=== PATIENT | female | born 1950 | race African-American/Black ===

== ENCOUNTER 2018-03-12 14:49 | Outpatient (CLI) | payer MEDICARE | END 2018-03-12 14:50 | disposition home or self-care (01) | LOC: BICMAMMO 14:49 | PROVIDERS: ATTEND Internal Medicine | DX: Z12.31 Encounter for screening mammogram for malignant neoplasm of breast (principal); Z80.3 Family history of malignant neoplasm of breast | CPT/HCPCS: 77063; 77067 ==

== ENCOUNTER 2018-05-14 15:06 | Outpatient (CLI) | payer MEDICARE ==
--- NOTE | 2018-05-14 16:45 | RAD ---
PA AND LATERAL CHEST: HISTORY: Cough. FINDINGS: The heart size is normal. The aorta is tortuous. The lungs are well expanded without focal areas of consolidation, pneumothoraces, or pleural effusions. No acute osseous abnormalities are seen. IMPRESSION: No radiographic evidence of acute cardiopulmonary process. POS: [facility]
== END 2018-05-14 15:07 | disposition home or self-care (01) ==
LOC: BICRAD 15:06
PROVIDERS: ATTEND Internal Medicine
DX: R05 Cough (principal)
CPT/HCPCS: 71046

== ENCOUNTER 2020-02-16 17:02 | Inpatient (IN) | payer MEDICARE, MEDICAID ==
[2020-02-16] MEDS ORDERED: Aspirin Chewable 81 MG TAB ONE (17:38)
--- NOTE | 2020-02-16 17:45 | RAD ---
Portable frontal chest radiograph: 02/16/2020 COMPARISON: 10/04/2010 HISTORY: Heart palpitations, abnormal EKG FINDINGS: Lungs are hyperinflated with mild increased linear interstitial density, similar when armando red to prior imaging. There is atherosclerotic calcification of the aortic arch. Heart and mediastinal contours are stable. No pneumothorax or pleural fluid. No focal consolidation or alveolar edema. IMPRESSION: Stable appearance of the chest as detailed above.
[2020-02-16 17:57] LABS: #Basophils 0.1 thou/uL (0.0-0.2); #Eosinphils 0.4 thou/uL (0.0-0.7); #Lymphocytes 1.7 thou/uL (1.20-3.40); #Monocytes 0.5 thou/uL (0.11-0.59); %Eosinophils 6.7 % (0.0-10.0); %Lymphocytes 30.7 % (21.0-51.0); %Neutrophils 52.6 % (42.0-75.0); Hemoglobin 14.3 g/dL (12.0-16.0); Mean Corpuscular HGB CONC 32.7 g/dL (32.0-36.0); Mean Corpuscular Hemoglobin 30.4 pg (27.0-31.0); Mean Corpuscular Volume 92.9 fL (78.0-98.0); Platelet Count 148 thou/uL (130-400); RBC Distribution Width 12.9 % (11.5-14.5); Red Blood Cell (RBC) Count 4.69 mill/uL (4.20-5.40); White Blood Cell (WBC) Count 5.6 thou/uL (4.8-10.8)
[2020-02-16 18:32] LABS: CKMB 1.5 ng/mL (0-6.6)
[2020-02-16 18:33] LABS: Critical Call CKMB 1.5
[2020-02-16 18:34] LABS: ALT (SGPT) 8 U/L (8-55); AST (SGOT) 18 U/L (5-34); Albumin 4.2 g/dL (3.4-4.8); Alkaline Phosphatase 80 U/L (40-110); Anion Gap 17 mmol/L (10-20); BUN (Urea Nitrogen) 10 mg/dL (9.8-20.1); Bilirubin, Total 1.3 mg/dL (0.2-1.2); Calc. Creatinine Clearance 0 mL/min (70-130); Calcium 9.7 mg/dL (7.8-10.44); Carbon Dioxide 28 mmol/L (23-31); Chloride 101 mmol/L (98-107); Estimated GFR-MDRD 85; Globulin 3.5 g/dL (2.4-3.5); Glucose 94 mg/dL (80-115); Potassium 5.6 mmol/L (3.5-5.1); Protein, Total 7.7 g/dL (6.0-8.3); Sodium 140 mmol/L (136-145)
[2020-02-16] MEDS ORDERED: Nitroglycerin 2% Ointment 1 INCH/1 GM Packet ONE (18:49)
[2020-02-16] MEDS ORDERED: Nitroglycerin 0.4 MG TAB 1 EACH ONE (18:59)
[2020-02-16] MEDS ORDERED: hydrALAZINE 25 MG TAB ONE ×2 (18:59→20:05)
--- NOTE | 2020-02-16 20:44 | PDOC.HHP ---
Hospitalist HPI - History of Present Illness chest pain and palpitations History of Present Illness: PCP: Peter The patient is a 69-year-old female with past medical history significant for hypertension, COPD, atrial fibrillation, and stroke. She presents to the ER today after being sent from her physician's office for an abnormal EKG. The patient states that last week, Sunday through Sunday, she had a feeling that her heart was racing. She states that she has a history of atrial fibrillation and it felt like those palpitations. It resolved after she would take her beta- anne marie. She states that on Sunday she had chest pain that she thought was a gas pain. She felt it was gas as it was a sharp pain and it went away on its own without any need of medication. On Sunday she felt weak but by Sunday she felt good again. She went in today for just a normal checkup with her doctor who took an EKG and told her it looks like she was having a "slight heart attack". This EKG was not available at time of admission to look at. In the office her blood pressure is 128/80 and she did not have any complaints of chest pain or heart palpitations at that time. Patient denies any fever, shortness of breath, diaphoresis, contact with sick persons, abdominal pain, nausea, vomiting. ED Course: VITAL SIGNS SunFeb 16, 2020 17:04 ADONIS Sorensen Macie BP: 136/129, Pulse: 58, Resp: 15, Temp: 98.6 (Oral), Pain: 0, O2 sat: 98 on (Room Air), Time: 02/16/2020 17:04. VITAL SIGNS SunFeb 16, 2020 18:39 ADONIS Perkins Ashleigh Pulse: 51, Resp: 18, Pain: 0, O2 sat: 97 on (Room Air), Time: 02/16/2020 18:39. VITAL SIGNS SunFeb 16, 2020 18:47 ADONIS Perkins Ashleigh BP: 210/140, Time: 02/16/2020 18:47. VITAL SIGNS SunFeb 16, 2020 19:54 ADONIS Perales Jordan BP: 190/110, Pulse: 51, Resp: 16, Temp: 98.5 (Oral), Pain: 0, O2 sat: 99 on (Room Air), Time: 02/16/2020 19:54. VITAL SIGNS SunFeb 16, 2020 20:52 ADONIS Perales Jordan BP: 170/110, Pulse: 61, Resp: 16, Temp: 98.5 (Oral), Pain: 0, O2 sat: 96 on (Room Air), Time: 02/16/2020 20:52. VITAL SIGNS SunFeb 17, 2020 00:22 ADONIS Perales Jordan BP: 174/86, MAP: 115, Pulse: 51, Resp: 18, Temp: 98.5 (Oral), Pain: 0, O2 sat: 98 on (Room Air), Time: 02/17/2020 00:22 Today in the ER the patient had an EKG completed, chest x-ray, and lab work. Patient was given hydralazine 25 mg oral, nitro 0.4 mg sublingual, nitro 1 inch transdermal, and aspirin 325 mg oral. Hospitalist ROS - Review of Systems Cardiovascular: reports: chest pain, palpitations All other systems reviewed; all pertinent +/- noted in HPI/Subj - Medication Medications: NKDA Current Medications: metoprolol tartrate oral SunFeb 16, 2020 17:30 ADONIS Perkins Ashleigh tablet : Strength - 50 mg : ORAL Patient Dose: 1 tab(s) Oral once a day. atorvastatin SunFeb 16, 2020 17:30 ADONIS Perkins Ashleigh tablet : Strength - 10 mg : ORAL Patient Dose: 1 tab(s) Oral once a day. Pepcid oral SunFeb 16, 2020 17:31 ADONIS Perkins Ashleigh tablet : Strength - 20 mg : ORAL Patient Dose: once a day. magnesium SunFeb 16, 2020 17:31 ADONIS Perkins Ashleigh tablet : ORAL Patient Dose: once a day. Hospitalist History - Past Medical History Source: patient Cardiac: reports: AFIB, HTN, Hyperlipidemia Pulmonary: reports: COPD - Past Surgical History Past Surgical History: reports: no pertinent history - Family History Family History: reports: no pertinent history - Social History Smoking Status: Current every day smoker Alcohol: reports: None Drugs: reports: none Living Situation: With Family Activity level: independent ambulation - Exam General Appearance: NAD, awake alert Eye: PERRL Heart: RRR, no murmur, no gallops, no rubs, normal peripheral pulses Respiratory: CTAB, no wheezes, no rales, no ronchi, normal chest expansion Gastrointestinal: soft, non-tender, non-distended, normal bowel sounds, no palpable masses Extremities: no cyanosis, no clubbing, no edema Neurological: no focal deficits Musculoskeletal: normal tone, normal strength, no muscle wasting Psychiatric: normal affect, normal behavior, A&O x 3 Hospitalist Results - Labs Result Diagrams: 02/16/20 17:47 02/16/20 17:47 Lab results: WBC 5.6 thou/uL (4.8-10.8) 02/16/20 17:47 Hgb 14.3 g/dL (12.0-16.0) 02/16/20 17:47 Hct 43.6 % (36.0-47.0) 02/16/20 17:47 MCV 92.9 fL (78.0-98.0) 02/16/20 17:47 Plt Count 148 thou/uL (130-400) 02/16/20 17:47 Neutrophils % 52.6 % (42.0-75.0) 02/16/20 17:47 Sodium 140 mmol/L (136-145) 02/16/20 17:47 Potassium 5.6 mmol/L (3.5-5.1) H 02/16/20 17:47 Chloride 101 mmol/L (98-107) 02/16/20 17:47 Carbon Dioxide 28 mmol/L (23-31) 02/16/20 17:47 BUN 10 mg/dL (9.8-20.1) 02/16/20 17:47 Creatinine 0.81 mg/dL (0.6-1.1) 02/16/20 17:47 Glucose 94 mg/dL (80-115) 02/16/20 17:47 Calcium 9.7 mg/dL (7.8-10.44) 02/16/20 17:47 Total Bilirubin 1.3 mg/dL (0.2-1.2) H 02/16/20 17:47 AST 18 U/L (5-34) 02/16/20 17:47 ALT 8 U/L (8-55) 02/16/20 17:47 Alkaline Phosphatase 80 U/L (40-110) 02/16/20 17:47 CK-MB (CK-2) 1.5 ng/mL (0-6.6) 02/16/20 17:47 Troponin I 0.074 ng/mL (< 0.028) H 02/16/20 17:47 B-Natriuretic Peptide 526.5 pg/mL (0-100) H 02/16/20 17:47 Serum Total Protein 7.7 g/dL (6.0-8.3) 02/16/20 17:47 Albumin 4.2 g/dL (3.4-4.8) 02/16/20 17:47 - EKG Interpretation EKG: SB 56bpm - Radiology Interpretation Chest x-ray Status: image reviewed by me, report reviewed by me Additional Comment: Portable frontal chest radiograph: 02/16/2020 COMPARISON: 10/04/2010 HISTORY: Heart palpitations, abnormal EKG FINDINGS: Lungs are hyperinflated with mild increased linear interstitial density, similar when compared to prior imaging. There is atherosclerotic calcification of the aortic arch. Heart and mediastinal contours are stable. No pneumothorax or pleural fluid. No focal consolidation or alveolar edema. IMPRESSION: Stable appearance of the chest as detailed above. Hospitalist H&P A/P - Plan Plan: Chest pain Normal EKG in ER, no copy of abnormal EKG from office Continue to trend troponins, no baseline troponin noted in history, troponin currently indeterminate Monitor on telemetry overnight No complaints of chest pain today Cardiac stress test in a.m. Hypertensive urgency Restart patient's home medications once reconciled P.r.n. antihypertensives to be made available Monitor vital signs every 4 hour Hyperkalemia Repeat BMP in a.m. Magnesium level ordered IV fluids History of atrial fibrillation Currently in sinus rhythm Monitor on telemetry Patient currently not on any anticoagulation medications at home, states she used to be on aspirin but her physician stopped a year ago CODE STATUS: Full Surrogate decision maker is her daughter, Lucina Bertrand Patient discussed with Dr. Cantu
[2020-02-16 21:29] LABS: Troponin I 0.074 ng/mL (< 0.028)
[2020-02-17 01:15] LABS: Troponin I 0.064 ng/mL (< 0.028)
[2020-02-17] MEDS: Sodium Chloride 0.9% 1,000 ML IV SCH ×3 (02:28→21:41)
[2020-02-17 04:09] LABS: #Basophils 0.1 thou/uL (0.0-0.2); #Eosinphils 0.4 thou/uL (0.0-0.7); #Monocytes 0.3 thou/uL (0.11-0.59); #Neutrophils 2.8 thou/uL (1.40-6.50); %Eosinophils 7.7 % (0.0-10.0); %Lymphocytes 35.7 % (21.0-51.0); %Neutrophils 49.6 % (42.0-75.0); Hemoglobin 13.2 g/dL (12.0-16.0); Mean Corpuscular HGB CONC 32.8 g/dL (32.0-36.0); Mean Corpuscular Hemoglobin 30.2 pg (27.0-31.0); Mean Corpuscular Volume 92.2 fL (78.0-98.0); Mean Platelet Volume 9.9 fL (7.4-10.4); Platelet Count 135 thou/uL (130-400); RBC Distribution Width 13.1 % (11.5-14.5); Red Blood Cell (RBC) Count 4.37 mill/uL (4.20-5.40); White Blood Cell (WBC) Count 5.7 thou/uL (4.8-10.8)
[2020-02-17 04:37] LABS: Anion Gap 13 mmol/L (10-20); BUN (Urea Nitrogen) 9 mg/dL (9.8-20.1); Calc. Creatinine Clearance 58 mL/min (70-130); Calcium 9.5 mg/dL (7.8-10.44); Carbon Dioxide 28 mmol/L (23-31); Cardiac Risk 1.9 (Less than 4.5); Chloride 103 mmol/L (98-107); Cholesterol 159 mg/dl (< 200 Desired); Estimated GFR-MDRD 90; Glucose 83 mg/dL (80-115); HDL Cholesterol 85 mg/dL (>60 Neg Risk); LDL Cholesterol, Calculated 63 mg/dL; Potassium 3.8 mmol/L (3.5-5.1); Sodium 140 mmol/L (136-145); Triglycerides 54 mg/dL (Less than 150)
[2020-02-17] MEDS ORDERED: hydrALAZINE 20 MG/ML VIAL SLOW IVP PRN (04:50)
[2020-02-17] MEDS ORDERED: hydrALAZINE 10 MG TAB PO PRN (05:15)
--- NOTE | 2020-02-17 09:01 | PDOC.HOSPP ---
- Subjective Encounter Date: 02/17/20 Encounter Time: 11:30 Subjective: Patient without further chest pain. None since Sunday. A little palpitation run this morning, but self limited, before she was on tele monitory. Patient hasn't been on Xarelto for years nor Aspirin for the past year. Stopped by PCP per patient but no bleed or other reason given. - Objective Vital Signs & Weight: Vital Signs (12 hours) Pulse BP 02/17/20 05:32 47 L 205/96 H Weight Weight 119 lb 0.088 oz Result Diagrams: 02/17/20 04:00 02/17/20 04:00 EKG Reviewed by me: Yes (no afib on monitor since came up to floor) Hospitalist ROS - Review of Systems Constitutional: denies: fever, chills Respiratory: denies: cough, shortness of breath Cardiovascular: reports: palpitations. denies: chest pain, orthopnea Gastrointestinal: denies: nausea, vomiting, abdominal pain - Medication Medications: Active Medications Generic Name Dose Route Start Last Admin Trade Name Freq PRN Reason Stop Dose Admin Hydralazine HCl 10 mg 02/17/20 05:15 02/17/20 05:32 Hydralazine 10 Mg Tab PO 10 mg Q6HR PRN Administration Hypertension Sodium Chloride 1,000 mls @ 75 mls/hr 02/17/20 00:45 02/17/20 02:28 Normal Saline 0.9% IV 1,000 mls .[id number] ALEX Administration - Exam General Appearance: NAD, awake alert ENT: moist mucosa Heart: RRR, no murmur, no gallops, no rubs Respiratory: CTAB, no wheezes, no rales, no ronchi Gastrointestinal: soft, non-tender, non-distended, normal bowel sounds Psychiatric: normal affect, normal behavior, A&O x 3 Hosp A/P - Plan Chest pain- last Sunday, resolved spontaneously Normal EKG in ER, EKG from office showed inverted T-waves in inferior leads, not on ours troponin indeterminate, unchanged overnight Monitor on telemetry overnight No complaints of chest pain today Cardiology consulted last night, uncertain what happened to the stress test that was supposed to happen this morning. Looks like the overnight doctor cancelled it but no note left to explain why. Hypertensive urgency Restart patient's home medications P.r.n. antihypertensives to be made available Monitor vital signs every 4 hour Hyperkalemia Repeat BMP normal, likely from hemolysis IV fluids given, can d/c History of atrial fibrillation Currently in sinus rhythm Monitor on telemetry Patient currently not on any anticoagulation medications at home, states she used to be on aspirin but her physician stopped a year ago, will need to discuss with her PCP and cardiology because she probably needs to be on something. CODE STATUS: Full Surrogate decision maker is her daughter, Lucina Bertrand Home when ok with cardiology.
[2020-02-17] MEDS ORDERED: Labetalol HCl 100 MG/20 ML VIAL SLOW IVP PRN (09:02)
[2020-02-17] MEDS ORDERED: Enoxaparin Sodium 40 MG/0.4 ML SYRINGE ONE (10:38)
[2020-02-17] MEDS ORDERED: Aspirin 325 MG TAB ONE (10:38)
[2020-02-17] MEDS: Aspirin 325 mg Enteric Coated Tablet PO SCH (10:53)
[2020-02-17] MEDS: Enoxaparin Sodium 40 MG/0.4 ML SYRINGE SC SCH (10:54)
[2020-02-17] MEDS: hydrALAZINE 25 MG TAB PO PRN ×2 (12:06→21:42)
[2020-02-17] MEDS ORDERED: Metoprolol Tartrate 25 MG TAB PO SCH (12:30)
[2020-02-17] MEDS ORDERED: cloNIDine 0.1 MG TAB PO PRN (13:11)
[2020-02-17] MEDS: Amlodipine 5 MG TAB PO SCH ×2 (13:37→14:30)
--- NOTE | 2020-02-17 18:15 | CON ---
DATE OF CONSULTATION: 02/17/2020 INDICATION FOR CONSULTATION: A 69-year-old female with abnormal EKG and history of tachycardia. HISTORY OF PRESENT ILLNESS: This is a very pleasant 69-year-old female noticed last and Sunday that she had a rapid irregular heart rate. She said that Sunday evening, she noticed some left anterior chest discomfort. She thought it was just some gas, it lasted about an hour, then it returned, then each episode lasted about 10 minutes and resolved. Three weeks ago, she had a similar episode and noticed some increased heart rate, which also lasted about 10 minutes. She started having some irregular heart rate and tachycardia back in 2010 after she suffered a CVA. At that time, she was on aspirin, but recently her aspirin had been stopped due to anemia and she has been treated with what sounds like iron supplementations or IV iron infusions over the last several weeks or months perhaps even years. The aspirin was stopped back in January 2019. She was seen in the primary care physician's office yesterday and was sent to the emergency room saying that perhaps she has suffered a myocardial infarction. At that time, she had decreased R- wave progression in V1 through V3 and also had T-wave inversions in the inferior leads. The EKG in the emergency room did show a sinus bradycardia with heart rate in the 50s and subsequently she has actually had heart rates in the 40s, I believe, but EKG at that time shows some flattening of the T-waves in the inferior leads and some T-wave inversions in lead III and decreased R-wave progression in V1 through V3, but no indication of a clear myocardial infarction or any ST-segment elevation that would indicate ischemia. On my discussion with the patient, she did say that she has smoked for quite some time and also has had some symptoms of claudication involving the right lower extremity, but otherwise has had no myocardial infarction she is aware of, but did suffer the CVA. PAST MEDICAL HISTORY: Significant for tubal ligation, COPD, some allergies in the form of hay fever and she has had a CVA in September 2010. SOCIAL HISTORY: She is . She has 4 children. No heart disease. She smoked half a pack to a pack a day for the last 40 years. She has no alcohol use. 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 FAMILY HISTORY: Her father also had smoked, had a myocardial infarction, but not under the age of 55 or 60. ALLERGIES: SHE IS ALLERGIC TO CODEINE. PRESENT MEDICATIONS: Prior to admission include: 1. Metoprolol 25 mg, she was taking 50 mg a day. 2. She is also taking Lipitor 10 mg a day. 3. She also had an inhaler that she was using as needed. Medications at this time since being in the hospital include: 1. Aspirin 325 mg a day. 2. Atorvastatin 10 mg a day. 3. She is on Lovenox for DVT prophylaxis. 4. 50 mg a day of metoprolol. 5. Hydralazine p.r.n. 6. Labetalol also p.r.n. medication. REVIEW OF SYSTEMS: She did complain of SOB,CHAVEZ. She continues to smoke. She has palpitations. She has had occasional chest pain as noted in the history of present illness. She has shortness of breath and dyspnea on exertion. She denies any GI or complaints. She had no neurological complaints. Musculoskeletal, she complains of some right thigh pain with walking. PHYSICAL EXAMINATION: GENERAL: Reveals a well-developed, well-nourished, very thin female. VITAL SIGNS: Blood pressure is very elevated at 199/93. She is afebrile. Pulse is anywhere between 47 to 55 and shows a sinus rhythm. Her O2 saturation was 100%, respiratory rate was 17. HEENT: Shows the head to be normocephalic and atraumatic. NECK: Carotid pulses are present. I did not hear any bruits. CHEST: Has decreased breath sounds throughout. On the left side, she has expiratory rales and wheezes, which are very coarse. CARDIOVASCULAR: Heart sounds are distant. I did not hear any significant murmurs, heaves, thrills, bruits, or rubs. ABDOMEN: Soft, flat, and is nontender. I did not feel any pulsatile aorta. It does appear to be within normal limits. I did not hear any bruits. EXTREMITIES: Show no clubbing, cyanosis, or edema. I cannot palpate pedal pulses, femoral pulses, or popliteal pulses on the right lower extremity. The left appeared to be within normal limits. There was no edema noted. SKIN: Warm and dry. NEUROLOGIC: The patient appears to be fully intact. There were no gross focal motor deficits noted. DIAGNOSTIC STUDIES: EKG as noted above shows a sinus rhythm or sinus bradycardia with no acute ST-segment changes, but some flattening of the T-waves in the inferior leads and decreased R-wave progression in V1 through V3. IMPRESSION: 1. A 69-year-old female with a long history of tobacco abuse with some chest discomfort and possible underlying intermittent atrial fibrillation. She has been monitored on telemetry. I do not see that she has had any atrial fibrillation since being here. She is pain-free at this time. I would suggest that the patient undergo some type of stress testing to rule out evidence of underlying ischemia. If any ischemia is noted on the stress test or any abnormalities, I would suggest she undergo further evaluation by cardiac catheterization. 2. Peripheral vascular disease with decreased pulses or no palpable pulses on the right lower extremity and most likely is the cause of the discomfort when she tries to ambulate. At some point in time, she will need to undergo an arterial Doppler evaluation of the lower extremities. 3. History of tobacco abuse. She has been strongly encouraged to stop smoking altogether. 4. Hypertension. We will need to evaluate her medications and would add at least an MICHAEL inhibitor to lower the blood pressure. Her renal function appears to be normal and if necessary, we will need to add other medications in the form of amlodipine or Norvasc in order to lower the blood pressure with most likely try amlodipine first to decrease her hypertension. 5. Abnormal cardiac enzymes, which were indeterminate. This may be due to demand ischemia associated with the rapid heart rates and also associated with this elevated blood pressure of over 200 mmHg. We can add clonidine as a backup in case she continues to have elevated systolic blood pressures above 160. Also, evaluate her hemoglobin, she is no longer anemic, can certainly reinstate some type of oral anticoagulation especially in light of her peripheral vascular disease and possible atrial fibrillation. Job ID: [id number] MTDD
[2020-02-18 04:13] LABS: #Basophils 0.1 thou/uL (0.0-0.2); #Eosinphils 0.4 thou/uL (0.0-0.7); #Lymphocytes 1.7 thou/uL (1.20-3.40); #Monocytes 0.5 thou/uL (0.11-0.59); #Neutrophils 2.7 thou/uL (1.40-6.50); %Eosinophils 7.9 % (0.0-10.0); %Lymphocytes 31.4 % (21.0-51.0); %Monocytes 9.3 % (0.0-10.0); %Neutrophils 50.4 % (42.0-75.0); Hemoglobin 13.1 g/dL (12.0-16.0); Mean Corpuscular HGB CONC 33.5 g/dL (32.0-36.0); Mean Corpuscular Volume 92.5 fL (78.0-98.0); Mean Platelet Volume 10.2 fL (7.4-10.4); Platelet Count 129 thou/uL (130-400); RBC Distribution Width 13.1 % (11.5-14.5); Red Blood Cell (RBC) Count 4.25 mill/uL (4.20-5.40); White Blood Cell (WBC) Count 5.4 thou/uL (4.8-10.8)
[2020-02-18] MEDS: hydrALAZINE 25 MG TAB PO PRN ×2 (04:32→10:08)
[2020-02-18 04:33] LABS: Anion Gap 13 mmol/L (10-20); BUN (Urea Nitrogen) 10 mg/dL (9.8-20.1); Calc. Creatinine Clearance 67 mL/min (70-130); Calcium 8.9 mg/dL (7.8-10.44); Carbon Dioxide 24 mmol/L (23-31); Chloride 105 mmol/L (98-107); Estimated GFR-MDRD Greater than 90; Glucose 79 mg/dL (80-115); Potassium 3.3 mmol/L (3.5-5.1); Sodium 139 mmol/L (136-145)
--- NOTE | 2020-02-18 08:43 | PDOC.HOSPP ---
- Subjective Encounter Date: 02/18/20 Encounter Time: 10:30 Subjective: Patient very anxious right now. Was down at stress lab and she got scared of the effects of the medication so refused it. Dr. Cox just ordered Ativan and patient has agreed to try again. No more runs of fast heart rate. - Objective Vital Signs & Weight: Vital Signs (12 hours) Temp Pulse Resp BP BP Pulse Ox 02/18/20 07:35 98.5 F 55 L 14 172/70 H 96 02/18/20 06:35 164/79 H 02/18/20 02:55 98.6 F 51 L 19 192/84 H 95 02/18/20 00:30 178/80 H 02/18/20 00:00 98.5 F 64 18 94 L 02/17/20 23:00 58 L 190/93 H Weight Weight 120 lb I&O: 02/17/20 02/18/20 02/19/20 06:59 06:59 06:59 Intake Total 1592 Balance 1592 Result Diagrams: 02/18/20 03:32 02/18/20 03:32 Hospitalist ROS - Review of Systems Constitutional: denies: fever, chills Respiratory: denies: cough, shortness of breath Cardiovascular: denies: chest pain, palpitations Gastrointestinal: denies: nausea, vomiting, abdominal pain - Medication Medications: Active Medications Generic Name Dose Route Start Last Admin Trade Name Freq PRN Reason Stop Dose Admin Aspirin 325 mg 02/17/20 09:00 02/17/20 10:53 Aspirin 325 Mg Enteric Coated Tablet PO 325 mg DAILY ALEX Administration Enoxaparin Sodium 40 mg 02/17/20 09:00 02/17/20 10:54 Enoxaparin Sodium 40 Mg/0.4 Ml Syringe SC Not Given 0900 ALEX Hydralazine HCl 25 mg 02/17/20 11:32 02/18/20 04:32 Hydralazine 25 Mg Tab PO 25 mg Q6H PRN Administration SBP Greater Than 180 Sodium Chloride 1,000 mls @ 75 mls/hr 02/17/20 00:45 02/17/20 21:41 Normal Saline 0.9% IV 1,000 mls .[id number] ALEX Administration - Exam General Appearance: NAD, awake alert ENT: moist mucosa Heart: RRR, no murmur, no gallops, no rubs Respiratory: CTAB, no wheezes, no rales, no ronchi Gastrointestinal: soft, non-tender, non-distended, normal bowel sounds Psychiatric: A&O x 3 Psychiatric - other findings: anxious affect Hosp A/P - Plan Chest pain- last Sunday, resolved spontaneously Normal EKG in ER, EKG from office showed inverted T-waves in inferior leads, not on ours troponin indeterminate, unchanged overnight Monitor on telemetry overnight No complaints of chest pain today Appreciate Dr. Bates's assistance. Stress test today for risk stratification. ECHO with normal EF. Hypertensive urgency Restarted patient's home medications and adding Amlodipine and Hemant-I P.r.n. antihypertensives to be made available Monitor vital signs every 4 hour Hyperkalemia Repeat BMP normal, likely from hemolysis IV fluids given, can d/c today History of atrial fibrillation Currently in sinus rhythm Monitor on telemetry- no afib runs here Patient currently not on any anticoagulation medications at home, states she used to be on Xarelto and later aspirin but her physician stopped a year ago. Resuming ASA here. Peripheral Vascular Disease No pulse in right leg, will need outpatient workup and possible revascularization. CODE STATUS: Full Surrogate decision maker is her daughter, Lucina Bertrand Home when ok with cardiology.
[2020-02-18] MEDS ORDERED: Amlodipine 5 MG TAB PO SCH ×2 (09:00→13:10)
[2020-02-18] MEDS ORDERED: Metoprolol Tartrate 50 MG TAB PO SCH (09:00)
[2020-02-18] MEDS ORDERED: Atorvastatin Calcium 10 MG TAB PO SCH (09:00)
[2020-02-18] MEDS: Enoxaparin Sodium 40 MG/0.4 ML SYRINGE SC SCH (10:05)
[2020-02-18] MEDS: Aspirin 325 mg Enteric Coated Tablet PO SCH (10:05)
[2020-02-18] MEDS ORDERED: Regadenoson 0.4 MG/5 ML SYRINGE ONE (10:19)
[2020-02-18] MEDS ORDERED: Lorazepam 0.5 MG TAB PO SCH (10:30)
[2020-02-18 14:11] VITALS: BMI 18.2
--- NOTE | 2020-02-18 14:20 | NM ---
CARDIAC SPECT: CLINICAL HISTORY: 69-year-old female with abnormal EKG, chest pain, stroke, hypertension, COPD, atrial fibrillation, dy slipidemia, smoker. TECHNIQUE: A myocardial perfusion scan was performed using the single isotope one day protocol with technetium-9 9m sestamibi. 10 mCi were injected intravenously for the rest exam followed by 28 mCi for the stress exam. Pharmacologic stress with Lexiscan was monitored and interpreted by Vu Rojas. FINDINGS: Fairly homogeneous tracer distribution is seen in the myocardial segments on stress and rest images w ithout fixed or reversible defects. GATED SPECT LVEF: 69%. WALL MOTION EXAM: Normal. IMPRESSION: Normal myocardial perfusion scan. POS: AH
[2020-02-18] MEDS ORDERED: Lisinopril 10 MG TAB PO SCH (15:00)
[2020-02-18 17:10] VITALS: BP 131/73; TEMP 97.9
--- NOTE | 2020-02-19 02:01 | DIS ---
DATE OF ADMISSION: 02/17/2020 DATE OF DISCHARGE: 02/18/2020 PRIMARY CARE PHYSICIAN: Dr. Morris. REASON FOR ADMISSION: Chest pain and palpitations. DIAGNOSES AT DISCHARGE: 1. Chest pain, resolved. 2. Hypertensive urgency, resolved. 3. Possible history of atrial fibrillation. 4. Peripheral vascular disease. PROCEDURES: 1. Echocardiogram showing an ejection fraction of 55% to 60% without significant abnormality. 2. Nuclear medicine stress testing showing normal myocardial perfusion scan. CONSULTATIONS: Cardiology, Dr. Cox. SUMMARY OF HOSPITAL COURSE: This is a 69-year-old female with a history of high blood pressure, COPD, possible intermittent atrial fibrillation, and previous stroke. She presented to the emergency room with an abnormal EKG. She also had some episodes of feeling her heart was racing and then had some chest pain last Sunday, all those symptoms had resolved. However, the EKG in the outside clinic was felt to be concerning enough that she was sent to the emergency room. In the ER, she had a normal EKG and some indeterminate troponins. Dr. Cox was consulted. She recommended nuclear medicine stress testing for risk stratification and this came back negative. The patient did not have any atrial fibrillation or runs of arrhythmias while she was in the hospital on telemetry. Given the fact that she has had a possible history of atrial fibrillation, she was put on a daily aspirin. She has also been instructed to follow up with Dr. Cox tomorrow afternoon to get a monitor. The patient also needs to follow up about her right leg which has a lack of pulse consistent with peripheral vascular disease and needs further workup and possible intervention. On the day of discharge, the patient was without any sort of palpitations and had no chest pain and was feeling well and ambulating well and is being discharged home. DISCHARGE MANAGEMENT: Discharged home. ACTIVITY: As tolerated. DIET: Healthy heart with low-sodium diet. FOLLOWUP: Follow up with Dr. Cox' office tomorrow for monitor and to schedule followup visit and follow up with Dr. Morris in 2 to 3 weeks. DISCHARGE MEDICATIONS: 1. Aspirin 325 mg daily, 30 tablets dispensed. 2. Amlodipine 5 mg daily, 30 tablets dispensed. 3. Lisinopril 10 mg daily, 30 tablets dispensed. 4. Atorvastatin 10 mg daily. 5. Metoprolol tartrate 50 mg daily. Job ID: [id number]
[2020-02-19] MEDS ORDERED: Lisinopril 10 MG TAB PO SCH (09:00)
--- NOTE | 2020-02-20 04:13 | PQF ---
CLINICAL DOCUMENTATION CLARIFICATION FORM: Dear : Manuel Khan Date / Time: 02/20/2020 8438 Please exercise your independent, professional judgment in responding to the clarification form. Clinical indicators are provided on the bottom of this form for your review Please check appropriate box(s): [ ] Paroxysmal Atrial Fibrillation [ ] Permanent Atrial Fibrillation [ ] Persistent Atrial Fibrillation [ ] Long Standing Persistent Atrial Fibrillation [ ] Chronic Atrial Fibrillation [ ] Other Diagnosis [ X ] Unable to Determine Physician Signature: Date/Time: For continuity of documentation, please document condition throughout progress notes and discharge summary. Thank You. To be completed by CDI/Coding staff for physician review: Present Clinical Indicators - Signs / Symptoms / Labs Results and Location in Medical Record [X] Echocardiogram : EF 55-60 %, Regurgitation of Aorta, Tricuspid, Pulmonic and Mitral Procedure Dr Cox 02/16 [X] Stress test Nuclear: [place] myocardial perfusion scan Procedure Dr Tucker 02/17 [X] BP 205/96, Pulse 47, Resp 17, Temp 98.5 Vital signs 02/16 [X] EKG : Rate 56, Rhythm is sinus, Normal [place], Normal intervals, Normal ST segments normal T waves. Impression sinus bradycardia ED notes p8 02/16 [X] Hypertensive emergency, chest pain, NSTEMI ED notes p8 02/16 [X] AFib H&P p1 02/15 [place] [facility] [X] Chest pain and palpitations H&P p1 02/15 [place] [facility] Present Risk Factors Results and Location in Medical Record [X] 69 year-old Male H&P p1 02/15 [place] [facility] [X] HTN H&P p1 02/15 [place] [facility] [X] COPD H&P p1 02/15 [place] [facility] [X] Hx of Stroke H&P p1 02/15 [place] [facility] [X] HLD HP 02/15 [X] Smoker HP 02/15 Present Treatments Results and Location in Medical Record [X] Cardiology Consult Consult Dr Cox 02/16 [X] Echocardiogram Procedure Dr Cox 02/16 [X] Stress test Nuclear Procedure Dr Tucker 02/17 [X] Aspirin 325 mg oral JUN 24 [X] Lovenox 40 mg oral JUN 24 [X] EKG ED notes p8 02/16 CDS/Solid Waste Engineer Signature: Olga Nobles Phone #: [phone] Date/Time: 02/20/2020 This is a permanent part of the Medical Record [facility]
--- NOTE | 2020-02-20 04:14 | PQF ---
CLINICAL DOCUMENTATION CLARIFICATION FORM: Dear : Manuel Khan Date / Time: 02/20/2020 0410 Please exercise your independent, professional judgment in responding to the clarification form. Clinical indicators are provided on the bottom of this form for your review Please check appropriate box(es) to clarify if the following diagnosis has been ruled in our ruled out: NSTEMI [ ] Ruled in diagnosis [ ] Continue to treat [ ] Resolved [ X ] Ruled out diagnosis [ ] Improving [ ] Cannot rule out diagnosis [ ] Other diagnosis [ ] Unable to determine Physician Signature: Date/Time: For continuity of documentation, please document condition throughout progress notes and discharge summary. Thank You. To be completed by CDI/Coding staff for physician review: Present Clinical Indicators - Signs / Symptoms / Labs Results and Location in Medical Record [X] Echocardiogram : EF 55-60 %, Regurgitation of Aorta, Tricuspid, Pulmonic and Mitral Procedure Dr Cox 02/16 [X] Stress test Nuclear: [place] myocardial perfusion scan Procedure Dr Tucker 02/17 [X] BNP 526.5, Troponin I 0.074; 0.074; 0.064 Laboratory 02/15 [X] BP 205/96, Pulse 47, Resp 17, Temp 98.5 Vital signs 02/16 [X] EKG : Rate 56, Rhythm is sinus, Normal [place], Normal intervals, Normal ST segments normal T waves. Impression sinus bradycardia ED notes p8 02/16 [X] Hypertensive emergency, chest pain, NSTEMI ED notes p8 02/16 [X] Chest pain and palpitations H&P p1 02/15 [place] [facility] [employer] [facility] Present Risk Factors Results and Location in Medical Record [X] 69 year-old Male H&P p1 02/15 [place] [facility] [facility] [X] HTN H&P p1 02/15 [place] [facility] [X] AFib H&P p1 02/15 [place] [facility] [employer] [facility] [X] COPD H&P p1 02/15 [place] [facility] [X] Hx of Stroke H&P p1 02/15 [place] [facility] [employer] [facility]ORDINATOR[facility] [X] HLD HP 02/15 [X] Smoker HP 02/15 Present Treatments Results and Location in Medical Record [X] Cardiology Consult Consult Dr Cox 02/16 [X] Echocardiogram Procedure Dr Cox 02/16 [X] Stress test Nuclear Procedure Dr Tucker 02/17 [X] Aspirin 325 mg oral JUN 24 [X] Nitro-Bid 2% Ointment JUN 24 [X] EKG ED notes p8 02/16 [X] Lovenox 40mg Subcu JUN 24 CDS/Rn Unit Manager Signature: Olga Nobles Phone #: [phone] Date/Time: 02/20/2020 0413 This is a permanent part of the Medical Record [facility]
--- NOTE | 2020-02-21 17:20 | EKG ---
Test Reason : Blood Pressure : / mmHG Vent. Rate : 056 BPM Atrial Rate : 056 BPM P-R Int : 136 ms QRS Dur : 076 ms QT Int : 464 ms P-R-T Axes : 065 071 092 degrees QTc Int : 447 ms Sinus bradycardia Otherwise normal ECG Confirmed by ALICE PEREZ, YURIY Hinson ([id number]), editor book DAVE SEARS ([id number]) on 02/21/2020 5:20:04 PM Referred By: Confirmed By:YURIY JENKINS MD
== END 2020-02-18 16:10 | disposition home or self-care (01) | DRG 305 ==
LOC: ERS 17:02 → ERHOLD 19:28 → 2NO 20:30 → OBSVTOIN 02-17 16:19
PROVIDERS: ADMIT Internal Medicine; ATTEND Emergency Medicine
DX: I16.0 Hypertensive urgency (principal); I48.91 Unspecified atrial fibrillation; I73.9 Peripheral vascular disease, unspecified; J44.9 Chronic obstructive pulmonary disease, unspecified; E78.5 Hyperlipidemia, unspecified; I10 Essential (primary) hypertension; F17.210 Nicotine dependence, cigarettes, uncomplicated; E87.5 Hyperkalemia; Z86.73 Personal history of transient ischemic attack (TIA), and cerebral infarction without residual deficits; Z98.51 Tubal ligation status; Z79.899 Other long term (current) drug therapy; Z79.82 Long term (current) use of aspirin
CPT/HCPCS: 36415; 36600; 71045; 78452; 80048; 80053; 80061; 82553; 83735; 83880; 84484; 85025; 93005; 93017; 93306; 94760; A9500; G0378; J1650; J2785

== ENCOUNTER 2021-05-11 09:16 | Outpatient (CLI) | payer MEDICARE, MEDICAID ==
[2021-05-11 09:48] LABS: Mean Corpuscular Hemoglobin 22.6 pg (27.0-33.0); Mean Corpuscular Volume 77.9 fl (81.6-98.3); Mean Platelet Volume 9.1 fl (7.4-10.4); Platelet Count 291 10x3/uL (150-450); RBC Distribution Width 17.6 % (11.5-14.5); Red Blood Cell (RBC) Count 3.98 10x6/uL (3.90-5.03); White Blood Cell (WBC) Count 4.4 10x3/uL (3.5-10.5)
[2021-05-11 10:06] LABS: Anion Gap 14 mmol/L (10-20); BUN (Urea Nitrogen) 9 mg/dL (9.8-20.1); Calc. Creatinine Clearance 0 mL/min (70-130); Carbon Dioxide 30 mmol/L (23-31); Chloride 103 mmol/L (98-107); Glucose 108 mg/dL (83-110); PTT 25.1 sec (22.0-33.0); Potassium 4.6 mmol/L (3.5-5.1); Prothrombin Time 11.4 sec (9.5-12.1); Sodium 142 mmol/L (136-145)
[2021-05-11 19:12] LABS: SARS-CoV-2 PCR by NAA Not Detected (NotDetected)
== END 2021-05-11 09:17 | disposition home or self-care (01) ==
LOC: LABBT 09:16
PROVIDERS: ATTEND Internal Medicine Cardiovascular Disease
DX: Z01.812 Encounter for preprocedural laboratory examination (principal); Z51.81 Encounter for therapeutic drug level monitoring; I48.0 Paroxysmal atrial fibrillation; I51.9 Heart disease, unspecified; Z79.01 Long term (current) use of anticoagulants; Z20.822 Contact with and (suspected) exposure to COVID-19
CPT/HCPCS: 80048; 85027; 85610; 85730; U0003; U0005

== ENCOUNTER 2021-11-02 14:12 | Outpatient (CLI) | payer MEDICARE, MEDICAID ==
[2021-11-02 16:04] LABS: Hemoglobin 13.2 g/dL (12.0-15.5); Mean Corpuscular HGB CONC 32.4 g/dL (32.0-36.0); Mean Corpuscular Hemoglobin 30.6 pg (27.0-33.0); Mean Corpuscular Volume 94.2 fl (81.6-98.3); Platelet Count 195 10x3/uL (150-450); RBC Distribution Width 14.1 % (11.5-14.5); Red Blood Cell (RBC) Count 4.32 10x6/uL (3.90-5.03); White Blood Cell (WBC) Count 5.1 10x3/uL (3.5-10.5)
[2021-11-02 16:29] LABS: PTT 28.6 sec (22.0-33.0); Prothrombin Time 11.1 sec (9.5-12.1)
[2021-11-02 16:32] LABS: Anion Gap 10 mmol/L (10-20); BUN (Urea Nitrogen) 15 mg/dL (9.8-20.1); Calc. Creatinine Clearance 0 mL/min (70-130); Calcium 9.5 mg/dL (7.8-10.44); Carbon Dioxide 31 mmol/L (23-31); Chloride 100 mmol/L (98-107); Estimated GFR 73; Glucose 79 mg/dL (83-110); Potassium 3.8 mmol/L (3.5-5.1); Sodium 137 mmol/L (136-145)
== END 2021-11-02 14:13 | disposition home or self-care (01) ==
LOC: LABBT 14:12
PROVIDERS: ATTEND Internal Medicine Cardiovascular Disease
DX: Z01.812 Encounter for preprocedural laboratory examination (principal); I48.0 Paroxysmal atrial fibrillation; I51.9 Heart disease, unspecified; Z51.81 Encounter for therapeutic drug level monitoring; Z79.01 Long term (current) use of anticoagulants; Z20.822 Contact with and (suspected) exposure to COVID-19
CPT/HCPCS: 80048; 85027; 85610; 85730; 87811

== ENCOUNTER 2021-11-07 09:47 | Day surgery (SDC) | payer OTHER, MEDICAID ==
[2021-11-03 14:18] VITALS: BMI 17.8
[2021-11-07] MEDS ORDERED: Heparin 10,000 UNITS/ 10 ML VIAL ONE (10:19)
[2021-11-07] MEDS ORDERED: Isoproterenol 0.2 MG/1 ML AMP ONE (10:19)
[2021-11-07] MEDS ORDERED: Protamine Sulfate 50 MG/5 ML VIAL ONE (10:19)
[2021-11-07] MEDS ORDERED: Heparin 25,000 units/D5W 500 ML ONE (10:19)
[2021-11-07] MEDS ORDERED: fentaNYL Citrate/PF 100 MCG/2 ML SYRINGE ONE (13:30)
[2021-11-07] MEDS ORDERED: Ondansetron PF 4 MG/2 ML Vial ONE (13:32)
[2021-11-07] MEDS ORDERED: Lidocaine 1% PF 5 ML VIAL ONE (13:32)
[2021-11-07] MEDS ORDERED: Labetalol HCl 100 MG/20 ML VIAL ONE (13:32)
[2021-11-07] MEDS ORDERED: Rocuronium Bromide 10 MG/ML (10ML VIAL) ONE (13:32)
[2021-11-07] MEDS ORDERED: PROPOFOL 200 MG/20 ML VIAL ONE (13:32)
[2021-11-07] MEDS ORDERED: Dexamethasone 20 MG/5 ML VIAL ONE (13:32)
[2021-11-07] MEDS ORDERED: SUGAMMADEX SODIUM 200 MG/2 ML VIAL ONE (13:59)
== END 2021-11-07 15:20 | disposition home or self-care (01) ==
LOC: SDC 09:47
PROVIDERS: ATTEND Internal Medicine Cardiovascular Disease
PROC: B246ZZ4 Ultrasonography of Right and Left Heart, Transesophageal (ICD-10-PCS; principal; 2021-11-07)
DX: I48.19 Other persistent atrial fibrillation (principal); I51.7 Cardiomegaly; I70.0 Atherosclerosis of aorta; R00.2 Palpitations; Z79.01 Long term (current) use of anticoagulants; Z79.899 Other long term (current) drug therapy; Z88.5 Allergy status to narcotic agent
CPT/HCPCS: 93312; C1732; C1769; J1100; J1644; J2405; J2704; J2720